=== PATIENT | female | born 1945 | race Caucasian/White ===

== ENCOUNTER → 2022-02-28 09:42 | Outpatient (CLI) | payer MEDICARE, OTHER, SELFPAY ==
--- NOTE | 2022-02-28 | DI.NM.S_ITS ---
PROCEDURE: [place] BONE SCAN WHOLE BODY RADIOPHARMACEUTICAL: 22.0 mCi Tc-99m MDP IV. INDICATIONS: BREAST CANCER TECHNIQUE: Delayed whole-body scintigrams were obtained approximately 3-4 hours after intravenous injection of radiotracer. Anterior and posterior views were acquired from vertex to feet. Additional left and right oblique views of the ribcage were obtained. COMPARISON: None. FINDINGS: There is patchy uptake in sternum suspicious for metastasis. Subtle increased uptake is seen in the left 4th and 7th ribs, suspicious for metastasis. Mild patchy uptake in skull, nonspecific. No lesions are identified in clavicles, scapulae, bony pelvis, and visualized shafts of the long bones. Scoliosis. There are foci of increased uptake in cervical, thoracic and lumbar spine most likely secondary to degenerative disc and facet disease; early metastasis to spine could be obscured by degenerative changes. There are foci of increased periarticular activity involving shoulders, sternoclavicular joints, wrists, hips, SI joints and knees and feet, compatible with degenerative/arthritic changes. IMPRESSION: 1. Abnormal uptake in sternum suspicious for metastasis. Recommend radiographic correlation. 2. Foci of increased uptake involving the left 4th and 7th ribs, suspicious for metastasis. Recommend radiographic correlation. 3. Foci of increased uptake in spine may be degenerative in nature. If there is clinical symptoms for pain/tenderness, x-ray should be obtained for correlation. 4. Degenerative/arthritic changes in multiple peripheral joints. Dictated by: Chavez Jack M.D. on 02/28/2022 at 15:58 Approved by: Chavez Jack M.D. on 03/04/2022 at 10:35
== END ==
PROVIDERS: PCP Family Medicine; Referring Provider Physician Assistant; Visit Provider Physician Assistant
DX: C79.51 Secondary malignant neoplasm of bone (principal); Z85.3 Personal history of malignant neoplasm of breast
CPT/HCPCS: 78306; A9503

== ENCOUNTER → 2023-03-07 10:04 | Outpatient (CLI) | payer MEDICARE, OTHER, SELFPAY ==
--- NOTE | 2023-03-07 | DI.NM.S_ITS ---
PROCEDURE: [place] BONE SCAN WHOLE BODY RADIOPHARMACEUTICAL: 22 mCi Tc-99m MDP IV. INDICATIONS: BREAST CANCER TECHNIQUE: Delayed whole-body scintigrams were obtained approximately 3-4 hours after intravenous injection of radiotracer. Anterior and posterior views were acquired from vertex to feet. COMPARISON: [place], [place], [place] BONE SCAN WHOLE BODY, 02/28/2022, 13:58. FINDINGS: Physiologic uptake is noted within the kidneys and bladder. There are multiple foci of increased uptake within the visualized spine predominantly thoracic and lumbar, more prominent when compared to prior exam. Multiple foci are identified within the ribs appearing stable. Calvarial uptake is present. Patchy uptake in the sternum is present. Prominent increased uptake within the knees predominantly the left as well as shoulders, wrists, hips SI joints and feet are present. IMPRESSION: Mild appearance of increased foci of uptake within the spine. As previously noted, this is indistinguishable of metastatic disease versus degenerative change. However, given interval progression, concern is raised for metastatic foci. MRI lumbar spine without contrast may be helpful for further evaluation. Stable appearance of uptake within the ribs suspicious for metastatic disease. Patchy uptake within the calvarium overall nonspecific and unchanged. Metastatic disease cannot be definitively excluded. Dictated by: Almita Hunter M.D. on 03/07/2023 at 16:34 Approved by: Almita Hunter M.D. on 03/07/2023 at 16:36
== END ==
PROVIDERS: PCP Family Medicine; Referring Provider Internal Medicine Hematology & Oncology; Visit Provider Internal Medicine Hematology & Oncology
DX: C50.912 Malignant neoplasm of unspecified site of left female breast (principal); Z17.0 Estrogen receptor positive status [ER+]
CPT/HCPCS: 78306; A9503